=== PATIENT | male | born 1990 | race African-American/Black ===

== ENCOUNTER → 2018-09-02 12:41 | Outpatient (CLI) | payer OTHER, SELFPAY ==
--- NOTE | 2018-09-02 | DI.RAD.S_ITS ---
PROCEDURE: FL SHOULDER INJECTION MR/CT LT INDICATIONS: Pain in left shoulder TECHNIQUE: The indications, alternatives, benefits, risks, and complications of the procedure were explained to the patient. Written informed consent was obtained and placed in the chart. The shoulder was examined fluoroscopically and a site for needle placement chosen for entry into the glenohumeral joint from an anterior approach. The skin was prepped and draped in a sterile fashion, and 1% lidocaine infiltrated from skin down to joint capsule. A spinal needle was inserted into the glenohumeral joint, and a small amount of iodinated contrast media injected to confirm intra-articular placement of the needle tip. This was followed by approximately 12 mL dilute solution of a gadolinium containing MR contrast agent. The needle was removed and a dressing was applied. The patient was given postprocedural instructions and sent to the MR suite for MR imaging. FINDINGS: A single fluoroscopic spot image demonstrates intra-articular location of injected iodinated contrast. IMPRESSION: Successful fluoroscopically guided administration of dilute Gadolinium solution into the shoulder joint for MR arthrogram. Dictated by: Anthony Shaikh M.D. on 09/02/2018 at 15:05 Approved by: Anthony Shaikh M.D. on 09/02/2018 at 15:06
--- NOTE | 2018-09-02 | DI.MRI.S_ITS ---
PROCEDURE: MR SHOULDER LT W CON INDICATIONS: Pain in left shoulder TECHNIQUE: After the administration of 12 mL of dilute intra-articular Gadolinium contrast, oblique coronal T1 and T2 spin echo with fat saturation, oblique sagittal T1 spin echo with and without fat saturation, oblique sagittal T2 fast spin echo with fat saturation, axial T1 spin echo with fat saturation through the shoulder. COMPARISON: None. FINDINGS: Image quality: Excellent. Rotator cuff: Tendinosis and low-grade articular surface partial-thickness tear involving distal supraspinatus and infraspinatus are seen. Distal subscapularis tendon is intact. No full-thickness rotator cuff tendon rupture. No rotator cuff muscle atrophy on sagittal images. Bones and bursae: Mild edema adjacent to acromioclavicular joint is seen, which may represent contusion. No fracture or dislocation. Nonspecific intraosseous cyst formation in anterior glenoid is noted. Capsule and soft tissues: There is contrast extension in the superior anterior labrum extending from 12 to 2:00 position, suggestive of superior anterior labral tear. The glenohumeral ligaments appear intact. The long head of the biceps tendon demonstrates normal location and morphology. The rotator interval appears normal, without fibrosis. The coracohumeral ligament is of normal thickness. No intra-articular bodies. IMPRESSION: 1. Tendinosis and low-grade articular surface partial-thickness tear involving distal supraspinatus and infraspinatus at their insertion on the humeral head extending to musculotendinous junction. No full-thickness rotator cuff tendon rupture. 2. Mild edema involving distal clavicle and acromion adjacent to acromioclavicular joint, which may represent bony contusion. No fracture or dislocation. 3. Finding is concerning for a superior anterior labral tear and 12 to 2:00 position. Dictated by: Anthony Shaikh M.D. on 09/02/2018 at 15:06 Approved by: Anthony Shaikh M.D. on 09/02/2018 at 15:11
== END ==
PROVIDERS: Visit Provider General Practice
DX: M25.512 Pain in left shoulder (principal); M75.112 Incomplete rotator cuff tear or rupture of left shoulder, not specified as traumatic; M25.412 Effusion, left shoulder
CPT/HCPCS: 23350; 73222; 77002